=== PATIENT | female | born 1990 | race Caucasian/White ===

== ENCOUNTER 2016-07-19 11:54 | Observation (INO) | payer OTHER ==
[~2016-07-19] VITALS: Ht 152.4 cm; Wt 85.3 kg
== END 2016-07-19 17:30 | disposition home or self-care (01) ==
LOC: SPU 15:51
PROVIDERS: ADMIT Specialist; ATTEND Specialist
DX: O36.8130 Decreased fetal movements, third trimester, not applicable or unspecified (principal); Z3A.30 30 weeks gestation of pregnancy
CPT/HCPCS: 59025; 81002; G0378

== ENCOUNTER 2016-08-13 17:11 | Observation (INO) | payer OTHER ==
[~2016-08-13] VITALS: Ht 152.4 cm; Wt 87.1 kg
[2016-08-13] MEDS ORDERED: TERBUTALINE SULFATE 1 MG/ML VIAL SUBCUT ONE (17:30)
[2016-08-13 18:26] LABS: BASOPHILS % (AUTO) 0.3 % (0.0-2.0); EOSINOPHILS # (AUTO) 0.1 K/uL (0.0-0.4); HEMATOCRIT 39.6 % (36-48); HEMOGLOBIN 13.5 g/dL (12.0-16.0); LYMPHOCYTES # (AUTO) 2.4 K/uL (1.0-5.5); LYMPHOCYTES % (AUTO) 19.8 % (20.5-51.5); MEAN CORPUSCULAR HEMOGLOBIN 31 pg (27-31); MEAN CORPUSCULAR HGB CONC 34 % (32-36); MEAN CORPUSCULAR VOLUME 90 fL (79.0-98.0); MONOCYTES % (AUTO) 7.8 % (1.7-9.3); NEUTROPHILS # (AUTO) 8.8 K/uL (1.8-7.7); NEUTROPHILS % (AUTO) 71.1 % (40.0-70.0); PLATELET COUNT (AUTO) 299 K/uL (130-430); RED BLOOD CELL COUNT(AUTO) 4.39 MIL/uL (4.2-6.2); RED CELL DISTRIBUTION WIDTH 14.6 % (9.0-15.0); WHITE BLOOD COUNT (AUTO) 12.3 K/uL (4.8-10.8)
[2016-08-13 18:36] LABS: BILIRUBIN,URINE NEGATIVE (NEGATIVE); BLOOD, URINE NEGATIVE (NEGATIVE); CLARITY/URINE HAZY (CLEAR); COLOR,URINE YELLOW (YELLOW); GLUCOSE,URINE NEGATIVE (NEGATIVE); KETONES,URINE NEGATIVE (NEGATIVE); LEUKOCYTE ESTERASE ,URINE NEGATIVE (NEGATIVE); NITRITE, URINE NEGATIVE (NEGATIVE); PH,URINE 6.5 (5.0-8.0); PROTEIN URINE NEGATIVE (NEGATIVE); UROBILINOGEN,URINE 0.2 (0.2-1.0)
== END 2016-08-13 21:45 | disposition home or self-care (01) ==
LOC: SPU 17:11
PROVIDERS: ADMIT Specialist; ATTEND Specialist
DX: O36.8130 Decreased fetal movements, third trimester, not applicable or unspecified (principal); O26.893 Other specified pregnancy related conditions, third trimester; M54.5 Low back pain; Z3A.34 34 weeks gestation of pregnancy
CPT/HCPCS: 36415; 81003; 85025; 96372; G0378; J3105

== ENCOUNTER 2020-03-19 09:05 | Observation (INO) | payer BC ==
[~2020-03-19] VITALS: Ht 152.4 cm; Wt 85.7 kg
[2020-03-19] MEDS ORDERED: CEFAZOLIN 2 GM IVPB PREMIX 50 ML IV ONE (10:30)
[2020-03-19] MEDS ORDERED: TERBUTALINE SULFATE 1 MG/ML VIAL SUBCUT PRN (10:30)
[2020-03-19] MEDS ORDERED: LR 1,000 ML IV SCH (10:30)
[2020-03-19 10:45] LABS: BASOPHILS # (AUTO) 0.1 K/uL (0.0-0.2); BASOPHILS % (AUTO) 0.6 % (0.0-2.0); EOSINOPHILS # (AUTO) 0.1 K/uL (0.0-0.4); EOSINOPHILS % (AUTO) 1.1 % (0.0-4.0); HEMATOCRIT 33.2 % (36-48); HEMOGLOBIN 11.1 g/dL (12.0-16.0); LYMPHOCYTES # (AUTO) 2.2 K/uL (1.0-5.5); LYMPHOCYTES % (AUTO) 18.5 % (20.5-51.5); MEAN CORPUSCULAR HEMOGLOBIN 29 pg (27-31); MEAN CORPUSCULAR HGB CONC 33 % (32-36); MEAN CORPUSCULAR VOLUME 88 fL (79.0-98.0); MONOCYTES % (AUTO) 7.9 % (1.7-9.3); NEUTROPHILS # (AUTO) 8.7 K/uL (1.8-7.7); NEUTROPHILS % (AUTO) 71.9 % (40.0-70.0); PLATELET COUNT (AUTO) 414 K/uL (130-430); RED BLOOD CELL COUNT(AUTO) 3.77 MIL/uL (4.2-6.2); RED CELL DISTRIBUTION WIDTH 13.9 % (9.0-15.0); WHITE BLOOD COUNT (AUTO) 12.1 K/uL (4.8-10.8)
[2020-03-19 11:11] LABS: BILIRUBIN,URINE NEGATIVE (NEGATIVE); BLOOD, URINE NEGATIVE (NEGATIVE); CLARITY/URINE SL CLOUDY (CLEAR); COLOR,URINE YELLOW (YELLOW); GLUCOSE,URINE NEGATIVE (NEGATIVE); KETONES,URINE 2+ (NEGATIVE); LEUKOCYTE ESTERASE ,URINE NEGATIVE (NEGATIVE); NITRITE, URINE NEGATIVE (NEGATIVE); PROTEIN URINE NEGATIVE (NEGATIVE); UROBILINOGEN,URINE 0.2 (0.2-1.0)
[2020-03-19 11:34] LABS: RBC,URINE NONE SEEN /HPF (0-3); WBC,URINE NONE SEEN /HPF (0-3)
[2020-03-19 11:35] LABS: BACTERIA,URINE None Seen /HPF (None Seen); TRICHOMONAS,URINE None Seen /HPF (None Seen); YEAST,URINE None Seen /HPF (None Seen)
[2020-03-19 12:21] VITALS: BP_SYST 102
[2020-03-19 15:02] VITALS: BP_SYST 100
[2020-03-19] MEDS ORDERED: HYDROmorphone 1 MG INJ. 1 MG/ML AMPUL IVP PRN (15:15)
[2020-03-19] MEDS ORDERED: ONDANSETRON HCL 4 MG/2 ML VIAL IVP PRN (15:15)
== END 2020-03-19 21:24 | disposition home or self-care (01) ==
LOC: SPU 09:05
PROVIDERS: ADMIT Specialist; ATTEND Specialist
DX: O34.32 Maternal care for cervical incompetence, second trimester (principal); Z87.59 Personal history of other complications of pregnancy, childbirth and the puerperium; Z98.891 History of uterine scar from previous surgery; Z3A.24 24 weeks gestation of pregnancy
CPT/HCPCS: 36415; 59320; 81000; 85025; 87070 ×2; 94760; 96365; 96372; G0378; J0690; J3105; J7120; 59899